=== PATIENT | female | born 1960 | race Caucasian/White ===

== ENCOUNTER 2017-10-19 07:01 | Day surgery (SDC) | payer BC ==
[2017-10-19] MEDS ORDERED: FENTANYL 100MCG/2ML SOL ONE (07:52)
[2017-10-19] MEDS ORDERED: PROPOFOL 10 MG/ML EMU IV ONE (08:13)
[2017-10-19 08:44] VITALS: O2SAT 99
[2017-10-19 08:56] VITALS: BP 124/75; PULSE 56; RESP 20; TEMP 97.9
== END 2017-10-19 09:10 | disposition home or self-care (01) ==
LOC: SURG 07:01
PROVIDERS: ATTEND Surgery
DX: Z12.11 Encounter for screening for malignant neoplasm of colon (principal); K57.30 Diverticulosis of large intestine without perforation or abscess without bleeding
CPT/HCPCS: J3010; J2704

== ENCOUNTER 2019-02-10 12:14 | Outpatient (CLI) | payer BC | END 2019-02-10 12:15 | disposition home or self-care (01) | LOC: CONVCARE 12:14 | PROVIDERS: ATTEND Orthopaedic Surgery | DX: S82.491D Other fracture of shaft of right fibula, subsequent encounter for closed fracture with routine healing (principal) | CPT/HCPCS: 73590 ==